=== PATIENT | female | born 1980 | race Caucasian/White ===

== ENCOUNTER 2016-11-13 17:18 | Emergency (ER) | payer OTHER ==
[2016-11-13] MEDS ORDERED: METF1000 PO (17:43)
[2016-11-13] MEDS ORDERED: LEVO100T5 PO (17:43)
[2016-11-13] MEDS ORDERED: ASPI81TA85 PO (17:43)
[2016-11-13] MEDS ORDERED: PRENTAB9 PO (17:43)
[2016-11-13] MEDS ORDERED: LABE20TAB PO (20:20)
== END 2016-11-13 17:28 | disposition left against medical advice (07) ==
LOC: M ED 17:18
DX: Z53.29 Procedure and treatment not carried out because of patient's decision for other reasons (principal)

== ENCOUNTER 2016-11-13 17:31 | Outpatient (CLI) | payer OTHER ==
[~2016-11-13] VITALS: Ht 154.9 cm; Wt 110.0 kg
[2016-11-13] MEDS ORDERED: METF1000 PO (17:43)
[2016-11-13] MEDS ORDERED: ASPI81TA85 PO (17:43)
[2016-11-13] MEDS ORDERED: PRENTAB9 PO (17:43)
[2016-11-13] MEDS ORDERED: LEVO100T5 PO (17:43)
[2016-11-13] MEDS ORDERED: LR 1,000 ML IV SCH (17:45)
[2016-11-13 18:17] VITALS: BP 135/87
[2016-11-13 18:32] VITALS: BP 142/95
[2016-11-13 18:37] LABS: MEAN CORPUSCULAR HEMOGLOBIN 26.4 pg (27.0-33.0); MEAN CORPUSCULAR HGB CONC 31.7 g/dl (32.0-36.5); MEAN CORPUSCULAR VOLUME 83.4 fl (80.0-96.0); RED CELL DISTRIBUTION WIDTH 16.4 % (11.5-14.5); WHITE BLOOD COUNT 12.7 K/mm3 (4.0-10.0)
[2016-11-13 18:43] LABS: ALT/SGPT 16 U/L (12-78); AST/SGOT 12 U/L (15-37); BILIRUBIN,TOTAL 0.1 MG/DL (0.2-1.0); CREATININE FOR GFR 0.74 MG/DL (0.55-1.02); GLOMERULAR FILTRATION RATE > 60.0 (>60); URIC ACID 3.6 MG/DL (2.6-6.0)
[2016-11-13 18:47] VITALS: BP 151/93
[2016-11-13] MEDS ORDERED: LABE20TAB PO (20:20)
[2016-11-13 20:25] VITALS: BP 154/84
[2016-11-13] MEDS ORDERED: LABETALOL 200 MG TAB PO ONE (20:30)
== END 2016-11-13 20:27 | disposition home or self-care (01) ==
LOC: M LDO 17:31
PROVIDERS: ATTEND Obstetrics & Gynecology
DX: O26.892 Other specified pregnancy related conditions, second trimester (principal); R03.0 Elevated blood-pressure reading, without diagnosis of hypertension; Z3A.22 22 weeks gestation of pregnancy; O30.042 Twin pregnancy, dichorionic/diamniotic, second trimester; O09.292 Supervision of pregnancy with other poor reproductive or obstetric history, second trimester; O99.212 Obesity complicating pregnancy, second trimester

== ENCOUNTER 2016-12-31 16:51 | Emergency (ER) | payer OTHER ==
[~2016-12-31] VITALS: Ht 154.9 cm; Wt 113.4 kg
[~2016-12-31 16:51] MED LIST: ASPI81TA85 PO; LABE20TAB PO; LEVO100T5 PO; METF1000 PO; PRENTAB9 PO
[2016-12-31 16:52] VITALS: BP 151/110
[2016-12-31] MEDS ORDERED: ACET50TAOT PO (17:17)
[2016-12-31] MEDS ORDERED: IRON65TA PO (17:18)
== END 2016-12-31 17:12 | disposition admitted as inpatient to this hospital (09) ==
LOC: M ED 17:09
DX: O26.893 Other specified pregnancy related conditions, third trimester (principal); R51 Headache; R42 Dizziness and giddiness; O99.89 Other specified diseases and conditions complicating pregnancy, childbirth and the puerperium; H53.9 Unspecified visual disturbance; O30.043 Twin pregnancy, dichorionic/diamniotic, third trimester; O09.523 Supervision of elderly multigravida, third trimester; O13.3 Gestational [pregnancy-induced] hypertension without significant proteinuria, third trimester; Z87.59 Personal history of other complications of pregnancy, childbirth and the puerperium; O34.219 Maternal care for unspecified type scar from previous cesarean delivery; Z87.51 Personal history of pre-term labor; O24.410 Gestational diabetes mellitus in pregnancy, diet controlled; O99.283 Endocrine, nutritional and metabolic diseases complicating pregnancy, third trimester; O99.013 Anemia complicating pregnancy, third trimester; Z3A.29 29 weeks gestation of pregnancy
CPT/HCPCS: 59025; 80053; 82570; 83615; 84156; 84550; 85027; 96372; 96374; 96375; J0702; J3475

== ENCOUNTER 2016-12-31 17:04 | Outpatient (CLI) | payer OTHER ==
[~2016-12-31] VITALS: Ht 154.9 cm; Wt 112.0 kg
[2016-12-31] VITALS (15 sets, daily range): BP systolic 134–177; BP diastolic 89–112
[2016-12-31] MEDS ORDERED: ACET50TAOT PO (17:17)
[2016-12-31] MEDS ORDERED: IRON65TA PO (17:18)
[2016-12-31 17:59] LABS: MEAN CORPUSCULAR HEMOGLOBIN 28.5 pg (27.0-33.0); MEAN CORPUSCULAR HGB CONC 32.8 g/dl (32.0-36.5); RED CELL DISTRIBUTION WIDTH 17.6 % (11.5-14.5); WHITE BLOOD COUNT 12.2 K/mm3 (4.0-10.0)
[2016-12-31 18:22] LABS: ALBUMIN 2.6 GM/DL (3.2-5.2); ALBUMIN/GLOBULIN RATIO 0.63 (1.00-1.93); ALKALINE PHOSPHATASE 126 U/L (45-117); ALT/SGPT 17 U/L (12-78); ANION GAP 11 MEQ/L (8-16); AST/SGOT 14 U/L (15-37); BILIRUBIN,TOTAL 0.2 MG/DL (0.2-1.0); BLOOD UREA NITROGEN 7 MG/DL (7-18); CALCIUM LEVEL 8.9 MG/DL (8.5-10.1); CARBON DIOXIDE LEVEL 22 MEQ/L (21-32); CHLORIDE LEVEL 105 MEQ/L (98-107); CREATININE FOR GFR 0.63 MG/DL (0.55-1.02); GLOMERULAR FILTRATION RATE > 60.0 (>60); GLUCOSE, FASTING 78 MG/DL (70-105); POTASSIUM SERUM 4.2 MEQ/L (3.5-5.1); SODIUM LEVEL 138 MEQ/L (136-145); TOTAL PROTEIN 6.7 GM/DL (6.4-8.2); URIC ACID 3.6 MG/DL (2.6-6.0)
[2016-12-31] MEDS ORDERED: ACETAMINOPHEN 500 MG TAB PO PRN (18:30)
[2016-12-31] MEDS ORDERED: MAG Sulf (OBGYN) 20GM/500ML 20,000 MG in APPROPRIATE DILUENT 1 EA IV SCH (18:50)
[2016-12-31] MEDS ORDERED: LR 1,000 ML IV SCH (18:50)
[2016-12-31] MEDS ORDERED: MAG Sulf (L&D) 4 GM/100 ML 4 GM in APPROPRIATE DILUENT 1 EA IV ONE (19:00)
[2016-12-31] MEDS ORDERED: CALCIUM GLUCONATE 1,000 MG in D5W MINI-BAG PLUS 100 ML IV PRN (19:00)
[2016-12-31] MEDS ORDERED: LABETALOL HCL 100 MG/20 ML VIAL IV PRN (19:15)
[2016-12-31] MEDS ORDERED: BETAMETHASONE SOLUSPAN 6MG/ML INJ 5ML (J0702) IM SCH (20:00)
== END 2016-12-31 20:05 ==
LOC: M LDO 17:04
PROVIDERS: ATTEND Obstetrics & Gynecology
DX: O14.13 Severe pre-eclampsia, third trimester (principal); O30.043 Twin pregnancy, dichorionic/diamniotic, third trimester; O09.523 Supervision of elderly multigravida, third trimester; O09.293 Supervision of pregnancy with other poor reproductive or obstetric history, third trimester; O34.219 Maternal care for unspecified type scar from previous cesarean delivery; O09.213 Supervision of pregnancy with history of pre-term labor, third trimester; O24.415 Gestational diabetes mellitus in pregnancy, controlled by oral hypoglycemic drugs; O99.013 Anemia complicating pregnancy, third trimester; D50.9 Iron deficiency anemia, unspecified; O99.283 Endocrine, nutritional and metabolic diseases complicating pregnancy, third trimester; E03.9 Hypothyroidism, unspecified; O09.813 Supervision of pregnancy resulting from assisted reproductive technology, third trimester; Z3A.29 29 weeks gestation of pregnancy; Z79.899 Other long term (current) drug therapy; Z79.82 Long term (current) use of aspirin
CPT/HCPCS: 59025; 80053; 82570; 83615; 84156; 84550; 85027; 96372; 96374; 96375; 96376; J0702; J3475

== ENCOUNTER → 2017-01-09 | Outpatient (CLI) | payer OTHER ==
[~2017-01-09] MED LIST changes: +ACET50TAOT PO; +IRON65TA PO
--- NOTE | 2017-01-09 14:30 | REP ---
BIOPHYSICAL PROFILE TWIN OB ULTRASOUND: 01/09/2017. Clinical history: Twin gestation with nonreactive stress test for twin B. Please evaluate. Comparison: No prior studies here or available to me at the time of this stat request. By LMP, the patient would be 30 weeks 3 days with EDC 03/17/2017. Findings: This is a known diamniotic dichorionic twin gestation. Both placentas are anterior and are grade 1. There is no previa or abruption. Twin A is breech towards the maternal right than the presenting twin. Cervix is about 3.7 cm long and closed. Amniotic fluid volume is visually normal with the deepest pocket 3.4 cm. Mid cord Doppler S/D ratio is 3.37 with forward diastolic flow maintained. Resistive index is 0.7. Twin A heart rate is 157. Only limited anatomy is seen with the left-sided stomach bubble, kidneys and bladder unremarkable. The heart could not be seen due to position. Twin B is higher, transverse lie and with head towards the maternal right. Amniotic fluid volume is visually normal. The deepest pocket measures 3.1 cm. The Doppler tracing also shows an S/D ratio of 3.37 and a resistive index of 0.7. Forward diastolic flow maintained. Only limited anatomy is seen with a left-sided stomach bubble, kidneys and bladder unremarkable. The heart could not be seen due to position. Biophysical profile Twin A: Breathing 2 Movement 2 Tone 2 AFV 2 This gives biophysical score 8/8. heart rate twin A 157. Biophysical profile Twin B: Breathing 2 Movement 2 Tone 2 AFV 2 Biophysical profile score 8/8. Twin B heart rate 131. No evidence of a nuchal cord for either twin. Membranes seen between the twins. Impression: 1. Dichorionic diamniotic twin gestation with twin A breech, lower at the maternal right and twin B higher, transverse with head to the maternal right. 2. Anterior placentas, grade 1, no previa or abruption. Cervix 3.7 cm, closed. 3. Biophysical profile score twin A 8/8, twin B 8/8. 4. heart rate twin A 157, twin B 131. Visually normal amniotic fluid. 5. Mid cord umbilical artery Doppler S/D ratio twin A 3.37, twin B 3.37. Normal forward diastolic flow. Resistive index 0.70 for both. Signed by Shawn Lewis MD 01/09/2017 05:19 P
== END ==
LOC: M RAD 12:07
PROVIDERS: ATTEND Nurse Practitioner Women's Health
DX: O30.043 Twin pregnancy, dichorionic/diamniotic, third trimester (principal); O32.1XX1 Maternal care for breech presentation, fetus 1; O32.2XX2 Maternal care for transverse and oblique lie, fetus 2; Z3A.30 30 weeks gestation of pregnancy

== ENCOUNTER → 2017-06-24 | Outpatient (REF) | payer OTHER ==
[~2017-06-24] MED LIST changes: -METF1000 PO; +METF10004 PO
== END ==
LOC: M LAB REF 12:29
PROVIDERS: ATTEND Physician Assistant
DX: J02.9 Acute pharyngitis, unspecified (principal)

== ENCOUNTER → 2018-04-23 | Outpatient (REF) | payer OTHER ==
[2018-04-23 12:30] LABS: ALBUMIN 3.6 GM/DL (3.2-5.2); ALBUMIN/GLOBULIN RATIO 0.97 (1.00-1.93); ALKALINE PHOSPHATASE 94 U/L (45-117); ALT/SGPT 17 U/L (12-78); ANION GAP 6 MEQ/L (8-16); AST/SGOT 11 U/L (7-37); BILIRUBIN,TOTAL 0.5 MG/DL (0.2-1.0); BLOOD UREA NITROGEN 15 MG/DL (7-18); CALCIUM LEVEL 8.7 MG/DL (8.5-10.1); CARBON DIOXIDE LEVEL 25 MEQ/L (21-32); CHLORIDE LEVEL 112 MEQ/L (98-107); CREATININE FOR GFR 1.02 MG/DL (0.55-1.30); GLOMERULAR FILTRATION RATE > 60.0 (>60); GLUCOSE, FASTING 91 MG/DL (70-100); POTASSIUM SERUM 4.3 MEQ/L (3.5-5.1); SODIUM LEVEL 143 MEQ/L (136-145); TOTAL PROTEIN 7.3 GM/DL (6.4-8.2)
== END ==
LOC: M LABDRAW1 11:43
DX: E66.09 Other obesity due to excess calories (principal)

== ENCOUNTER 2018-05-24 11:08 | Day surgery (SDC) | payer OTHER ==
[~2018-05-24 11:08] MED LIST changes: -ACET50TAOT PO; -ASPI81TA85 PO; -IRON65TA PO; -LABE20TAB PO; -LEVO100T5 PO; +LIDOCAINE 1% SDV 5 ML VIAL SQ; -METF10004 PO; -PRENTAB9 PO
[2018-05-24 12:06] LABS: URINE PREG TEST NEGATIVE (NEGATIVE)
[2018-05-24 12:07] LABS: CONTROL LINE UCG INT CTR LINE PRESENT
[2018-05-24] MEDS ORDERED: ONDANSETRON 4MG/2ML VIAL (J2405) As Ordered (12:23)
[2018-05-24] MEDS ORDERED: LIDOCAINE 2% INJ 100 MG/5 ML SDV (FOR ANES.) As Ordered (12:23)
[2018-05-24] MEDS ORDERED: KETOROLAC 60 MG/2 ML VIAL (J1885) As Ordered (12:23)
[2018-05-24] MEDS ORDERED: ROCURONIUM BROMIDE 50 MG/5 ML VIAL As Ordered (12:23)
[2018-05-24] MEDS ORDERED: PROPOFOL 200 MG/20 ML VIAL As Ordered (12:23)
[2018-05-24] MEDS ORDERED: MIDAZOLAM INJ 2 MG/2 ML VIAL (J2250) As Ordered (12:23)
[2018-05-24] MEDS ORDERED: dexameTHASONE 4 MG/ML 1ML VIAL (J1100) As Ordered (12:23)
[2018-05-24] MEDS ORDERED: fentaNYL 100 MCG/2 ML INJECTION (J3010) As Ordered (12:23)
[2018-05-24] MEDS ORDERED: GLYCOPYRROLATE INJ 0.2 MG/ML 2 ML VIAL As Ordered (12:30)
[2018-05-24] MEDS ORDERED: NEOSTIGMINE 10 MG/10 ML VIAL (J2710) As Ordered (12:30)
[2018-05-24] MEDS: LR 1,000 ML IV (12:32)
[2018-05-24] MEDS ORDERED: HYDROmorphone HCL 2 MG/ML 1ML VIAL (J1170) As Ordered (12:33)
[2018-05-24] MEDS ORDERED: METOCLOPRAMIDE INJ 10MG/2ML VIAL (J2765) As Ordered (14:25)
[2018-05-24] MEDS ORDERED: LR 1,000 ML IV ×2 (15:30)
[2018-05-24] MEDS ORDERED: PERCOCET 5MG/325MG TAB PO (15:30)
[2018-05-24] MEDS ORDERED: NORCO, ANEXSIA 5/325MG TABLET (HYDROcodone/ACETAMINOPHEN) PO (15:30)
[2018-05-24] MEDS ORDERED: fentaNYL 100 MCG/2 ML INJECTION (J3010) IV (15:30)
[2018-05-24] MEDS ORDERED: IBUPROFEN 600 MG TAB PO (15:30)
[2018-05-24] MEDS ORDERED: ONDANSETRON 4MG/2ML VIAL (J2405) IV (15:30)
== END 2018-05-24 17:08 | disposition home or self-care (01) ==
LOC: M SDC 11:08
DX: N83.8 Other noninflammatory disorders of ovary, fallopian tube and broad ligament (principal); N73.6 Female pelvic peritoneal adhesions (postinfective); Z88.0 Allergy status to penicillin; Z79.899 Other long term (current) drug therapy
CPT/HCPCS: 58661

== ENCOUNTER → 2021-04-12 | Outpatient (CLI) | payer OTHER ==
[~2021-04-12] MED LIST changes: +ACET500T15 PO; +ASPI81TA86 PO; +IRON65TA PO; +LABE20TAB PO; +LEVO100T5 PO; -LIDOCAINE 1% SDV 5 ML VIAL SQ; +METF10004 PO; +PRENTAB9 PO; +[UNRECOGNIZED DRUG - CODE] PO
== END ==
LOC: M RAD 16:55
PROVIDERS: ATTEND Physician Assistant
DX: M94.261 Chondromalacia, right knee (principal)

== ENCOUNTER → 2022-07-18 | Outpatient (CLI) | payer OTHER | LOC: M RAD 06:53 | PROVIDERS: ATTEND Surgery | DX: Z01.810 Encounter for preprocedural cardiovascular examination (principal); E66.01 Morbid (severe) obesity due to excess calories ==

== ENCOUNTER → 2022-08-29 | Outpatient (CLI) | payer OTHER ==
[2022-08-29 10:51] LABS: BASO % 0.4 % (0.0-1.0); EOS # 0.3 10^3/uL (0.0-0.5); EOS % 2.8 % (0.0-3.0); HEMOGLOBIN 10.3 g/dl (12.0-15.5); LYMPH # 2.3 10^3/uL (1.5-5.0); LYMPH % 24.2 % (24.0-44.0); MEAN CORPUSCULAR HGB CONC 29.4 g/dl (32.0-36.5); MEAN CORPUSCULAR VOLUME 78.3 fl (80.0-96.0); MONO # 0.7 10^3/uL (0.0-0.8); MONO % 7.5 % (2.0-8.0); NEUTROPHILS % 64.7 % (36.0-66.0); PLATELET COUNT, AUTOMATED 457 10^3/uL (150-450); RED BLOOD COUNT 4.47 10^6/uL (4.00-5.40); WHITE BLOOD COUNT 9.3 10^3/uL (4.0-10.0)
[2022-08-29 14:56] LABS: CARBON DIOXIDE LEVEL 24 MMOL/L (20-31); CHLORIDE LEVEL 105 MMOL/L (98-107); POTASSIUM SERUM 4.8 MMOL/L (3.5-5.1); SODIUM LEVEL 139 MMOL/L (136-145)
[2022-08-29 14:57] LABS: ALBUMIN 3.9 G/DL (3.2-5.2)
[2022-08-29 15:01] LABS: BLOOD UREA NITROGEN 18 MG/DL (9-23); GLUCOSE, FASTING 91 MG/DL (60-100); TRIGLYCERIDES LEVEL 278 MG/DL (<150)
[2022-08-29 15:02] LABS: ALKALINE PHOSPHATASE 90 U/L (46-116); CALCIUM LEVEL 8.8 MG/DL (8.5-10.1); FREE T4 1.13 NG/DL (0.89-1.76); VITAMIN B12 LEVEL 503 PG/ML (211-911)
[2022-08-29 15:03] LABS: FERRITIN 4.7 NG/ML (7.3-270.7); HDL CHOLESTEROL 38.7 MG/DL (>40)
[2022-08-29 15:04] LABS: ALT/SGPT 25 U/L (7.0-40); AST/SGOT 16 U/L (<34); BILIRUBIN,TOTAL 0.4 MG/DL (0.3-1.2); CHOLESTEROL LEVEL 171 MG/DL (<200); CHOLESTEROL RISK RATIO 4.41 (<5); CREATININE FOR GFR 0.79 MG/DL (0.55-1.30); GLOMERULAR FILTRATION RATE > 60.0 (>58); IRON (FE) 44 UG/DL (50-170); LDL CHOLESTEROL 76.7 MG/DL (<100); NON-HDL-C 132 MG/DL; PERCENT SATURATION 10.4 % (13.2-45.0); TOTAL 25(OH) VITAMIN D 15.5 NG/ML (20.0-100.0); TOTAL IRON BINDING CAPACITY 424 UG/DL (250-425); TOTAL PROTEIN 7.3 G/DL (5.7-8.2)
[2022-08-31 17:16] LABS: FOLATE 11.62 NG/ML (>5.4)
== END ==
LOC: M PLALAB 08:36
PROVIDERS: ATTEND Registered Nurse
DX: Z01.812 Encounter for preprocedural laboratory examination (principal); E56.9 Vitamin deficiency, unspecified; D51.9 Vitamin B12 deficiency anemia, unspecified; E66.01 Morbid (severe) obesity due to excess calories